=== PATIENT | male | born 1975 | race Caucasian/White ===

== ENCOUNTER → 2023-09-01 06:26 | Day surgery (SDC) | payer OTHER, SELFPAY ==
[2023-09-01 07:30] LABS: Glucose - Point of Care 261 mg/dl (70-99)
[2023-09-01 08:49] LABS: Glucose - Point of Care 133 mg/dl (70-99)
== END ==
LOC: GI 06:26
PROVIDERS: ATTENDING PHYSICIAN Internal Medicine
DX: Z12.11 Encounter for screening for malignant neoplasm of colon (principal); K62.1 Rectal polyp; K63.5 Polyp of colon
CPT/HCPCS: 45385; 45380; 88305; 82962

== ENCOUNTER → 2025-02-11 08:09 | Outpatient (REF) | payer OTHER, SELFPAY ==
[2025-02-11 10:15] LABS: ALT (SGPT) 34 U/L (0-50); AST (SGOT) 37 U/L (17-59); Albumin 4.5 g/dl (3.5-5.0); Alkaline Phosphatase 69 U/L (38-126); Blood Urea Nitrogen 21 mg/dl (9-20); Calcium 9.7 mg/dl (8.4-10.2); Carbon Dioxide 30 mmol/L (22-30); Chloride 103 mmol/L (98-107); Glucose 150 mg/dl (70-99); HDL Cholesterol 59 mg/dl; LDL Cholesterol, Calculated 53 mg/dl; Potassium 4.3 mmol/L (3.5-5.1); Sodium 139 mmol/L (135-145); Total Protein 6.9 g/dl (6.3-8.2); Very Low Density Lipoprotein 30 mg/dl (0-30); eGFR > 60.00
[2025-02-11 10:51] LABS: Glycohemoglobin (HgbA1c) 5.4 % (4.0-5.6)
[2025-02-11 10:52] LABS: Hematocrit 45.9 % (39.0-52.0); Hemoglobin 15.9 g/dL (13.0-18.0); Mean Corp Hgb Conc. 34.6 g/dL (33.0-37.0); Mean Corpuscular Volume 90.4 fL (80.0-94.0); Nucleated Red Blood Cells % 0 % (-); Platelet Count 189 10^3/uL (130-400); Red Cell Dist. Width 11.9 % (11.5-14.5)
[2025-02-11 11:32] LABS: Microalb - Urine Creatinine 80.600 mg/dl
[2025-02-11 11:39] LABS: Microalbumin, Random Urine <0.6 mg/dl (0.6-1.7)
== END ==
LOC: HWLAB 08:09
PROVIDERS: ATTENDING PHYSICIAN Family Medicine
DX: M25.551 Pain in right hip (principal); E11.65 Type 2 diabetes mellitus with hyperglycemia; E78.1 Pure hyperglyceridemia; G47.33 Obstructive sleep apnea (adult) (pediatric); E11.3292 Type 2 diabetes mellitus with mild nonproliferative diabetic retinopathy without macular edema, left eye
CPT/HCPCS: 36415; 73502; 80053; 80061; 82043; 82570; 83036; 85025